=== PATIENT | male | born 1945 | race Caucasian/White ===

== ENCOUNTER → 2017-01-17 | Outpatient (CLI) | payer OTHER, BC ==
[~2017-01-17] VITALS: Ht 180.3 cm; Wt 98.9 kg
[~2017-01-17] MED LIST: ASPIR 8181 MG PO; DAILY VALUE1 EAC1 PO; FISH OIL 1,001000 M2 PO; FLUOXETINE HCL40 MG PO; GLUCOPHAGE XR500 MG PO; LANTUS SUBQ; LANTUS100 UNIT/M SUBQ; METFORMIN HCL1000 MG PO; NOVOLOG100 UNIT/1 SUBQ; PANTOPRAZOLE SO40 M1 PO; PROBIOTIC1 EAC1 PO; PROTONIX40 M1 PO; SIMVASTATIN40 MG PO; ZOCOR40 MG PO
== END | disposition home or self-care (01) ==
LOC: GI 07:13
DX: Z09 Encounter for follow-up examination after completed treatment for conditions other than malignant neoplasm (principal); K22.70 Barrett's esophagus without dysplasia; K22.8 Other specified diseases of esophagus; K44.9 Diaphragmatic hernia without obstruction or gangrene; E11.9 Type 2 diabetes mellitus without complications; E78.00 Pure hypercholesterolemia, unspecified; K21.9 Gastro-esophageal reflux disease without esophagitis; F17.210 Nicotine dependence, cigarettes, uncomplicated; F41.8 Other specified anxiety disorders; F32.89 Other specified depressive episodes; Z88.8 Allergy status to other drugs, medicaments and biological substances; Z79.4 Long term (current) use of insulin; Z79.899 Other long term (current) drug therapy; Z98.890 Other specified postprocedural states
CPT/HCPCS: 62110; 62900

== ENCOUNTER → 2017-04-25 | Outpatient (CLI) | payer OTHER, BC ==
[~2017-04-25] VITALS: Ht 180.3 cm; Wt 98.9 kg
--- NOTE | ~2017-04-25 | P ---
[place] [address] PROCEDURE REPORT Name: KINGSLEYELIZABETH MICHAEL [id number] Admission: 04/25/17 Attend Phys: Brown Appiah Discharge: Date of : 47 Report #: [id number] THIS REPORT FOR: //name// CC: Brown Jiménez [facility] physician/PCP DATE OF SERVICE: 04/25/2017 PROCEDURE PERFORMED: Upper endoscopy with biopsies. 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 He is here for followup. He is on daily PPI therapy. He denies any dysphagia or symptoms at this time. DESCRIPTION OF PROCEDURE: The risks and benefits of the procedure were explained to the patient, those risks including but not limited to bleeding, perforation, and the risk of sedation. He understood these risks and gave informed consent. Sedation was given using propofol per anesthesia. Next, using a standard Fujinon upper endoscope, the scope was placed in the patient's mouth and advanced under direct vision through the esophagus, stomach and into the second portion of the duodenum. The upper and mid esophagus were normal in appearance. In the distal esophagus at the GE junction, no obvious Cummins's was noted. There was a single island that maybe Cummins's. Biopsy was obtained. No ablation was performed today. The gastric mucosa was normal. The pylorus was normal and patent. The duodenal bulb, first and second portion were all normal. The scope was then withdrawn and the procedure terminated. The patient tolerated the procedure well. IMPRESSION: 1. Possible small island of Cummins's esophagus. Biopsies obtained. 2. Otherwise, normal upper endoscopy. RECOMMENDATIONS: 1. Await biopsy results. 2. Continue PPI therapy. Thank you for allowing me to participate in his care. By: [id number] Brown Lawson MD /nt
--- NOTE | ~2017-04-25 | S ---
[facility] [place] [address] SURGICAL PATH RPT PROCEDURE Name: ELIZABETH WYNN Room #: REG Dafne Delgado#: [id number] Admission: 04/25/17 Date of : 47 Discharge: Report #: [id number] Path Case #: [id number] PATHOLOGY REPORT COLLECTION DATE: 04/25/2017 RECEIVED DATE: 04/25/2017 SUBMITTING PHYS: Dr. Brown Lawson OTHER PHYS: SPECIMEN(S) RECEIVED: A.Distal esophagus bx, hx Berretts * * * * * * * * * * * * FINAL DIAGNOSIS: Esophagus, distal, biopsy: - Squamocolumnar junctional mucosa, chronically inflamed with lymphoid aggregate and eosinophils. - Negative for intestinal metaplasia. PATHOLOGIST: Taye Mejias M.D. REPORT ELECTRONICALLY SIGNED BY: Taye Mejias M.D. DATE/TIME: 04/27/2017 08:44 * * * * * * * * * * * * GROSS PATHOLOGY: Received in formalin labeled "Elizabeth Wynn, distal esophagus Hx Cummins's," is a segment of shelley soft tissue measuring 0.3 cm in maximum dimension. The specimen is submitted entirely in cassette A1. (TSD; 04/26/2017) CLINICAL HISTORY: Pre-OP DX: Hx Cummins's esophagus Post-OP DX: Hx Cummins's esophagus INITIAL CPT CODE(S): A; 30337 Professional services performed by [facility] at [facility] [address], [place] [address] Technical services performed by [facility] at [address] [place] [address], [facility] [address], [place] [address]. [facility] [address] [place] [address] SURGICAL PATH RPT PROCEDURE Name: ELIZABETH WYNN Room #: REG [facility] M.R.#: [id number] Admission: 04/25/17 Date of : 47 Discharge: Report #: [id number] Path Case #: [id number] [facility] [id number] [address] PHONE: [phone] DIRECTOR: Abiel Burr M.D. * * * END OF REPORT * * *
== END | disposition home or self-care (01) ==
LOC: GI 05:24 → EDSTATUS 10:32 → GI 10:32 → PRE 10:32
DX: K22.8 Other specified diseases of esophagus (principal); K21.9 Gastro-esophageal reflux disease without esophagitis; E78.00 Pure hypercholesterolemia, unspecified; F32.89 Other specified depressive episodes; F41.8 Other specified anxiety disorders; F17.210 Nicotine dependence, cigarettes, uncomplicated; E11.9 Type 2 diabetes mellitus without complications; Z79.4 Long term (current) use of insulin; Z88.6 Allergy status to analgesic agent; Z79.82 Long term (current) use of aspirin; Z79.899 Other long term (current) drug therapy; Z98.890 Other specified postprocedural states
CPT/HCPCS: 62110; 62900

== ENCOUNTER → 2018-05-01 | Outpatient (CLI) | payer OTHER, BC ==
[~2018-05-01] VITALS: Ht 180.3 cm; Wt 97.5 kg
--- NOTE | ~2018-05-01 | P ---
[facility] [place] [address] PROCEDURE REPORT Name: KINGSLEYELIZABETH MICHAEL Room #: REG [facility].#: [id number] Admission: 05/01/18 Attend Phys: Brown Appiah Discharge: Date of : 47 Report #: [id number] THIS REPORT FOR: //name// CC: Brown Lawson [facility] physician/PCP [place] DATE OF SERVICE: 05/01/2018 PROCEDURE PERFORMED: Upper endoscopy with biopsies. HISTORY OF PRESENT ILLNESS: The patient is a 72-year-old male with a history of gastroesophageal reflux disease and Cummins's esophagus, who had low-grade dysplasia and has undergone several ablations in the past, the last ablation was in 12/2016. His last upper endoscopy was in 04/2017. Biopsies were obtained, which were negative for Cummins's at that time, therefore the patient is here for a 1-year followup. He denies any heartburn symptoms or dysphagia. He is taking Protonix on a daily basis. DESCRIPTION OF PROCEDURE: The risks and benefits of the procedure were explained to the patient, those risks including but not limited to bleeding, perforation, the risk of sedation. He understood these risks and gave informed consent. Sedation was given using propofol per anesthesia. Next, using a standard Olympus upper endoscope, the scope was placed in the patient's mouth and advanced under direct vision through the esophagus, stomach and into the second portion of the duodenum. The larynx was normal in appearance. The upper and mid esophagus was normal. In the distal esophagus at the GE junction, a possible short segment of Cummins's was noted. Biopsies were obtained. No evidence of esophagitis. Overall, the gastric mucosa was normal. The pylorus was normal and patent. The duodenal bulb, first and second portion were all normal. Scope was then withdrawn and the procedure terminated. The patient tolerated the procedure well. IMPRESSION: 1. Possible short segment Cummins's. 2. Otherwise, normal upper endoscopy. RECOMMENDATIONS: 1. Await biopsy results. 2. Continue daily PPI therapy. [facility] [address] [place] [address] PROCEDURE REPORT Name: ELIZABETH WYNN Room #: REG [facility] Danny#: [id number] Admission: 05/01/18 Attend Phys: Brown Appiah Discharge: Date of : 47 Report #: [id number] Thank you for allowing me to participate in his care. <ELECTRONICALLY SIGNED> By: Brown Lawson MD 05/03/18 0832 [id number] Brown Lawson MD /nt
--- NOTE | ~2018-05-01 | PATH ---
[facility] [address] [place] [address] PATHOLOGY RPT PROCEDURE Name: KINGSLEYELIZABETH FERNANDA Room #: REG [facility] Izabella.#: [id number] Admission: 05/01/18 Date of : 47 Discharge: Report #: [id number] Path Case #: [id number] [facility] Accession Number: [id number] . 01 Material submitted: . BX DISTAL ESOPHAGUS . 01 Clinical history: . Pre-OP DX: 2 month follow-up- Hals ablation Post-OP DX: Rule out Cummins's . 02 Diagnosis: Squamous and glandular mucosa "biopsy distal esophagus": - Reflux esophagitis with focal goblet cell metaplasia consistent with Cummins's metaplastic change. - There is no evidence of dysplasia or malignancy. (SHA:pit 05/02/2018) QTP/05/02/2018 . 02 Electronically signed: . Ronan Baig MD, Pathologist NPI- [id number] . 01 Gross description: . Received in formalin labeled "Elizabeth Olson, BX distal esophagus, rule out Cummins's, S/P ablation ," is a single segment of shelley soft tissue measuring 0.3 cm in maximum dimension. The specimen is entirely submitted in cassette A1. (TSD; 05/01/2018) TOB/TOB . 02 Pathologist provided ICD-10: K22.70, K21.0 . 02 CPT . 017303 Specimen Comment: A courtesy copy of this report has been sent to Specimen Comment: [phone]. Specimen Comment: Report sent to Performed at: [address], [place], [place] [id number] MD Vin Mcconnell MD Phone: [phone] Performed at: [address] [id number] MD Rosa M Roberts MD Phone: [phone]
== END | disposition home or self-care (01) ==
LOC: GI 07:59
DX: K22.70 Barrett's esophagus without dysplasia (principal); K21.0 Gastro-esophageal reflux disease with esophagitis; F32.9 Major depressive disorder, single episode, unspecified; F41.9 Anxiety disorder, unspecified; F17.210 Nicotine dependence, cigarettes, uncomplicated; E78.5 Hyperlipidemia, unspecified; K21.9 Gastro-esophageal reflux disease without esophagitis; E11.9 Type 2 diabetes mellitus without complications; Z79.4 Long term (current) use of insulin; Z98.890 Other specified postprocedural states; Z79.899 Other long term (current) drug therapy; Z79.82 Long term (current) use of aspirin

== ENCOUNTER → 2018-10-16 | Outpatient (CLI) | payer OTHER, BC ==
[~2018-10-16] VITALS: Ht 180.3 cm; Wt 91.6 kg
[~2018-10-16] MED LIST changes: +FLOMAX0.4 MG PO; +MELOXICAM15 MG PO
--- NOTE | 2018-10-17 14:06 | PATH ---
[facility] [address] [place] [address] PATHOLOGY RPT PROCEDURE Name: KINGSLEYELIZABETH FERNANDA Room #: REG CLDafne Parekh.#: [id number] ������������������ Admission: 10/16/18 ������������������ Date of : 47 Discharge: Report #: [id number] Path Case #: [id number] [facility] Accession Number: [id number] . 01 Material submitted: . esophagus - BX DISTAL ESOPHAGUS. Modifiers: distal . 01 Clinical history: . Pre-op diagnosis: Cummins's Post-op diagnosis: Previous history of Cummins's with low-grade dysplasia; status post ablation Last biopsy six months ago, no dysplasia . 02 Diagnosis: Gastroesophageal mucosa, distal esophagus previous Cummins's, endoscopic biopsy: - Focal specialized columnar epithelium (gastric cardia-type mucosa) with intestinal metaplasia, consistent with Cummins's metaplasia. - Negative for dysplasia. - Squamous mucosa with mild esophagitis. (IUV:chato; 10/17/2018) QMS/10/17/2018 . 02 Comment: The above diagnosis of Cummins's esophagus is made due to presence of intestinal metaplasia and with the assumption that the biopsies were obtained from the columnar mucosa in the distal esophagus located at least 1 cm proximal to the top of the gastric folds as per the 2016 ACG guidelines. (IUV:chato; 10/17/2018) . 02 Electronically signed: . Rosa M Roberts MD, Pathologist NPI- [id number] . 01 Gross description: . The specimen is received in formalin, labeled "Elizabeth Wynn, biopsy distal esophagus, R/O Cummins's". Received is are three segments of pale shelley soft tissue ranging in size from 0.3 to 0.5 cm in maximum dimensions. The specimen is submitted entirely in cassette A1. (CAA; 10/16/2018) QAC/QAC . 02 Pathologist provided ICD-10: K22.70 . 02 [place] [address] PATHOLOGY RPT PROCEDURE Name: ELIZABETH WYNN Room #: REG CLI MMarcos.#: [id number] ������������������ Admission: 10/16/18 ������������������ Date of : 47 Discharge: Report #: [id number] Path Case #: [id number] Specimen Comment: A courtesy copy of this report has been sent to Specimen Comment: [phone], . Specimen Comment: Report sent to / DR RIEVRS Performed at: [address], [place], [place] [id number] MD Vin Mcconnell MD Phone: [phone] Performed at: [address] [id number] MD Rosa M Roberts MD Phone: [phone]
--- NOTE | 2018-10-18 08:08 | P ---
[facility] [place] [address] PROCEDURE REPORT Name: KINGSLEYELIZABETHSMILEY MICHAEL [facility] [id number] Admission: 10/16/18 ������������������ Attend Phys: Brown Appiah Discharge: ������������������ Date of : 47 Report #: [id number] THIS REPORT FOR: //name// CC: Brown GERMAN DATE OF SERVICE: 10/16/2018 PROCEDURE PERFORMED: Upper endoscopy with biopsies. HISTORY OF PRESENT ILLNESS: The patient is a 73-year-old male with a history of Cummins's esophagus with low-grade dysplasia. He had undergone several ablations in the past, last ablation being in 12/2016. He then underwent an upper endoscopy in 04/2017. Biopsies at that time were negative for Cummins's. He then presented for a 1-year followup on 05/01/2018 in which biopsy showed Cummins's. No evidence of dysplasia. We therefore discussed his options in the office on 06/04/2018. The plan was to repeat upper endoscopy in 6 months, which is today for repeat biopsies. He is on Protonix on a daily basis. He does report intermittent heartburn symptoms at times. He denies any dysphagia. DESCRIPTION OF PROCEDURE: The risks and benefits of the procedure were explained to the patient, those risks including but not limited to bleeding, perforation, the risk of sedation. He understood these risks and gave informed consent. Sedation was given using propofol per anesthesia. Next, using a standard Olympus upper endoscope, the scope was placed in the patient's mouth and advanced under direct vision through the esophagus, stomach and into the second portion of the duodenum. The upper and mid esophagus was normal in appearance. In the distal esophagus, there is a short segment of Cummins's noted. Biopsies were obtained. No evidence of esophagitis or stricture. Overall, the gastric mucosa was normal. The pylorus was normal and patent. The duodenal bulb, first and second portion were all normal. The scope was then withdrawn and the procedure terminated. The patient tolerated the procedure well. IMPRESSION: 1. Short segment Cummins's. Biopsies obtained. 2. Otherwise, normal upper endoscopy. RECOMMENDATIONS: 1. Await biopsy results. 2. We discussed if biopsies at this time show Cummins's and no dysplasia again, we will likely repeat upper endoscopy in 1 year. 3. I advised the patient to try b.i.d. PPI therapy as he is having breakthrough heartburn symptoms at times. [address] [address] PROCEDURE REPORT Name: KINGSLEYELIZABETH MICHAEL Room #: REG SEPIDEH Delgado#: [id number] Admission: 10/16/18 ������������������ Attend Phys: Brown Appiah Discharge: ������������������ Date of : 47 Report #: [id number] Thank you for allowing me to participate in his care. ��������������������������������������������� <ELECTRONICALLY SIGNED> ���������������������������������������� By: Brown Lawson MD ��������������������������������������������� 10/18/18 0808 [id number] Brown Lawson MD /vernell
== END | disposition home or self-care (01) ==
LOC: GI 08:04
DX: K22.70 Barrett's esophagus without dysplasia (principal); K20.9 Esophagitis, unspecified; E11.9 Type 2 diabetes mellitus without complications; E78.5 Hyperlipidemia, unspecified; F41.9 Anxiety disorder, unspecified; F32.9 Major depressive disorder, single episode, unspecified; F17.210 Nicotine dependence, cigarettes, uncomplicated; Z79.4 Long term (current) use of insulin; Z98.890 Other specified postprocedural states; Z88.8 Allergy status to other drugs, medicaments and biological substances; Z79.82 Long term (current) use of aspirin; Z79.899 Other long term (current) drug therapy
CPT/HCPCS: 62110; 62900